=== PATIENT | female | born 1935 | race Caucasian/White ===

== ENCOUNTER 2017-09-13 11:34 | Outpatient (CLI) | payer OTHER ==
[~2017-09-13 11:34] MED LIST: AMLODIPINE BESY10 MG PO; CATAPRES0.1 MG PO; METFORMIN HCL850 MG PO; METOPROLOL SUC100 MG PO; SIMVASTATIN40 MG PO
== END 2017-09-13 15:00 | disposition home or self-care (01) ==
LOC: RAD 11:34
DX: J20.8 Acute bronchitis due to other specified organisms (principal); J22 Unspecified acute lower respiratory infection

== ENCOUNTER 2017-09-15 12:36 | Outpatient (CLI) | payer OTHER | END 2017-09-15 13:00 | disposition home or self-care (01) | LOC: NUCLEAR 12:36 | DX: I25.6 Silent myocardial ischemia (principal); I25.10 Atherosclerotic heart disease of native coronary artery without angina pectoris | CPT/HCPCS: 78452; 93017; A9500; J0153 ==

== ENCOUNTER 2023-11-09 01:10 | Emergency (ER) | payer OTHER ==
[~2023-11-09] VITALS: Ht 142.2 cm; Wt 67.6 kg
[2023-11-09] MEDS ORDERED: KETOROLAC TROMETHAMINE 30 MG VIAL IV STA (01:51)
[2023-11-09] MEDS ORDERED: ORPHENADRINE CITRATE 30 MG/ML AMPUL IV STA (01:51)
[2023-11-09 02:16] LABS: HEMATOCRIT 25.9 % (36.0-45.00); MEAN CELL VOLUME 83.5 fL (80.00-100.00); MEAN CORPUSCULAR HGB CONC 33.4 g/dl (32.0-36.0); PLATELET COUNT 215 K/uL (150-450)
[2023-11-09 02:17] LABS: HEMOGLOBIN 8.6 g/dL (12.0-15.00); MEAN CORPUSCULAR HEMOGLOBIN 27.7 pg (27.00-32.0); RED CELL DISTRIBUTION WIDTH 16.3 % (11.5-14.5)
[2023-11-09 02:24] LABS: INR 0.97; PARTIAL THROMBOPLASTIN TIME 22.2 SECONDS (22.0-34.0); PROTHROMBIN TIME 10.6 SECONDS (9.0-11.5)
[2023-11-09 02:27] LABS: ALBUMIN 3.3 gm/dL (3.4-5.0); BILIRUBIN TOTAL 0.18 mg/dL (0.3-1.2); CALCIUM 9.2 mg/dL (8.5-10.1); CREATININE SERUM 1.06 mg/dL (0.55-1.02); GFR 49.15; GLOBULINA 3.3 G/DL (2.4-3.5); POTASSIUM 4.29 mEq/L (3.5-5.1); TOTAL PROTEIN 6.6 gm/dL (6.4-8.2)
[2023-11-09 07:07] VITALS: BP 140/61; O2SAT 96
[2023-11-09] MEDS ORDERED: DOLOGESIC-DF 51 EACH PO (08:20)
== END 2023-11-09 08:32 ==
LOC: ER 01:10
PROVIDERS: General Practice
DX: R07.89 Other chest pain (principal); I10 Essential (primary) hypertension; E11.9 Type 2 diabetes mellitus without complications; Z79.84 Long term (current) use of oral hypoglycemic drugs
CPT/HCPCS: 36415; 71045; 82803; 93005; 93041; 96365; 99284; J1885; J2360